=== PATIENT | male | born 2000 | race Caucasian/White ===

== ENCOUNTER 2021-08-25 18:55 | Inpatient (IN) ==
[2021-08-25 20:15] LABS: Basophils # (auto) 0.03 K/uL (0-0.2); Basophils % (auto) 0.3 %; Eosinophils # (auto) 0.02 K/uL (0-0.5); Eosinophils % (auto) 0.2 %; Hematocrit (blood only) 40.6 % (42-52); Hemoglobin 14.2 g/dL (14.0-18.0); Immature Granulocytes # (auto) 0.02 K/uL (0.00-0.02); Immature Granulocytes % (auto) 0.2 %; Lymphocytes # (auto) 1.87 K/uL (1.2-3.4); Mean Corpuscular Hemoglobin 30.5 pg (25-34); Mean Corpuscular Volume 87.3 fL (80-100); Mean Platelet Volume 10.7 fL (7.4-10.4); Monocytes # (auto) 1.29 K/uL (0.11-0.59); Monocytes % (auto) 11.7 %; Neutrophils # (auto) 7.79 K/uL (1.4-6.5); Neutrophils % (auto) 70.6 %; Platelet Count 232 K/uL (130-400); RDW Coefficient of Variation 12.8 % (11.5-14.5); RDW Standard Deviation 41.1 fL (36.4-46.3); Red Blood Count 4.65 M/uL (4.7-6.1); White Blood Count 11.02 K/uL (4.8-10.8)
[2021-08-25 20:31] LABS: Albumin Globulin Ratio 1.4 (0.9-2); Albumin Level 4.6 gm/dl (3.4-5.0); BUN Creatinine Ratio 13.6 (10-20); Bilirubin,Total 1.4 mg/dl (0.2-1.0); Calcium 9.8 mg/dl (8.5-10.1); Creatinine Clr Calc Pharmacy 145.1 ml/min; Est GFR (African American) 120.6 ml/min; Est GFR (Non-African American) 104.1 ml/min; Globulin 3.4 gm/dl (2.5-4.0); Potassium 3.5 mmol/L (3.5-5.1)
--- NOTE | 2021-08-25 21:14 | Emergency Department Note ---
Impression & Plan Peritonsillar abscess, Acute sore throat ED Provider Note NAME: KOURTNEY LOGAN AGE: 21 SEX: M : 2000 ARRIVES VIA: Walk-In INFORMANT: Patient, ED PROVIDER(S): Abram Jimenez MD Chief Complaint: Sore throat HPI: Patient presents due to concern for left-sided neck discomfort and concern for repeat peritonsillar abscess. The patient states that he had approximate 3 weeks of symptoms with some left-sided discomfort. The patient states he was seen at [facility] 2 separate times over the last 3 weeks and was prescribed 2 courses of penicillins. The patient had a recurrence yet again and presented h ere to the emergency department where he was seen by Dr. aCmacho started on amoxicillin and did have his peritonsillar abscess drained. Patient states that since then he has had a recurrence of count of this neck discomfort. Patient does complain of pain with swallowing. The patient has been continue to take the amoxicillin along with rflv-[id number] medications but without significant improvement in symptoms. Patient denies any chest pains or shortness of breath. Patient denies any nausea vomiting or diarrhea. Patient also does have left- sided ear pain. ROS: See HPI for pertinent positives and negatives. A total of 10 systems were reviewed and otherwise negative. Past medical history: See below Surgical history: See below Social history: See below Physical Exam: GENERAL: NAD, wearing glasses, wearing a mask, non-toxic. EYE EXAM: Normal conjunctiva. PERRL, no anisocoria and EOM's grossly intact w/o pain. Ears: Left TM clear with no erythema or effusion. OROPHARYNX: Moist mucus membranes. Grossly normal dentition. Posterior pharynx with left-sided asymmetry and pharyngeal erythema. NECK: Supple, no nuchal rigidity, no adenopathy, non-tender. No signs of meningismus. Not stridulous. LUNGS: Clear to auscultation. Normal chest wall mechanics. HEART: NSR, no MRG. ABDOMEN: Abdomen soft, non-tender, normo-active bowel sounds, no masses, no rebound or guarding. BACK: No CVA TTP. SKIN: No rashes and no bruising. UPPER EXTREMITIES: Upper extremities are grossly normal. LOWER EXTREMITIES: Grossly normal, no edema. NEURO EXAM: A&O x3, cranial nerves II-XII grossly intact, normal speech, moves all 4 extremities on command w/o issue. Differential diagnoses: Viral syndrome, tonsillitis, streptococcal pharyngitis, mononucleosis, peritonsillar abscess, retropharyngeal abscess, otitis, pneumonia, influenza, as well as other pathologies. Course: Patient was seen and evaluated the bedside. Full history physical exam was performed. Imaging Studies: CT soft tissue neck per stat read left peritonsillar abscess with airway narrowing and slight displacement to the right Cardiac monitoring: An order was placed for continuous cardiac monitoring. The monitor shows a rate of 95 with sinus rhythm. MDM: Patient seen due to concern for sore throat. Patient's exam is consistent with a peritonsillar abscess. Blood work was obtained and the patient was treated with IV fluids, IV Toradol dexamethasone and Unasyn. I did speak with on-call ENT physician Dr. Camacho. He will evaluate the patient in the morning for likely drainage. Patient family were at bedside or in agreement with admission at this time. Patient has had recurrent symptoms over 3 weeks with recent recurrence of peritonsillar abscess in the setting of drainage only as recently as Monday. Patient was admitted to medicine service by Dr. Morley. Patient does have associated left peritonsillar abscess. Patient's CT soft tissue neck states that there is some airway narrowing but the patient states handling secretions in the patient is not exhibiting any stridor at this time. Past Med/Surg History Medical History No pertinent past medical history Surgical History No pertinent past surgical history Family History Grandfather (Maternal) Hypertension Other No family history of adverse response to anesthesia No family history of bleeding disorder Social History Smoking Status: Never smoker Hx Alcohol Use: No Hx Substance Use: No Preferred Language: Yi marital status: Single current occupational status: student Feels Safe at Home: Yes Allergies Allergies Allergy/AdvReac Type Severity Reaction Status Date / Time No Known Allergies Allergy Verified 08/25/21 20:53 Home Meds Home Medications Medication Instructions Recorded Confirmed acetaminophen 500 mg tablet 1,000 mg PO DIRECTED PRN 08/25/21 08/25/21 (Tylenol Extra Strength) Previous Rx's Medication Instructions Recorded amoxicillin 875 mg-potassium 1 tab PO BID #20 tab 08/23/21 clavulanate 125 mg tablet Results & Data (ED) Vital Signs Vital Signs - 24 hr 08/25/21 19:04 08/25/21 22:38 Temperature 36.6 C Temperature Source Temporal Artery Scan Pulse Rate 105 H Pulse Rhythm Regular Pulse Strength Normal Respiratory Rate 20 16 Respiratory Effort / Characteristics Non-Labored Tripoding Non-Labored Respiratory Depth Normal Normal Respiratory Pattern Regular Regular Blood Pressure 135/90 Blood Pressure Mean 105 Blood Pressure Position Sitting Pulse Oximetry 97 98 Oxygen Delivery Method Room Air Room Air Sepsis Recent Fever Within 48 Hours No Sepsis New/Unexplained Change in Mental Status No Sepsis Action Taken by Nursing No Action Required Home Medications Current Medication List: was personally reviewed by me Laboratory Data Attestation: I reviewed the patient's lab results. Result diagrams: 08/25/21 20:01 08/25/21 20:01 Lab Results 08/25/21 08/25/21 08/25/21 Range/Units 10:29 20:01 20:01 WBC 11.02 H (4.8-10.8) K/uL RBC 4.65 L (4.7-6.1) M/uL Hgb 14.2 (14.0-18.0) g/dL Hct 40.6 L (42-52) % MCV 87.3 (80-100) fL MCH 30.5 (25-34) pg MCHC 35.0 (32-36) g/dL RDW Std Deviation 41.1 (36.4-46.3) fL RDW Coeff of Antonieta 12.8 (11.5-14.5) % Plt Count 232 (130-400) K/uL MPV 10.7 H (7.4-10.4) fL Immature Gran % (Auto) 0.2 % Neut % (Auto) 70.6 % Lymph % (Auto) 17.0 % [place] % (Auto) 11.7 % Eos % (Auto) 0.2 % Baso % (Auto) 0.3 % Neut # (Auto) 7.79 H (1.4-6.5) K/uL Lymph # (Auto) 1.87 (1.2-3.4) K/uL [place] # (Auto) 1.29 H (0.11-0.59) K/uL Eos # (Auto) 0.02 (0-0.5) K/uL Baso # (Auto) 0.03 (0-0.2) K/uL Immature Gran # (Auto) 0.02 (0.00-0.02) K/uL Sodium 138 (136-145) mmol/L Potassium 3.5 (3.5-5.1) mmol/L Chloride 103 (98-107) mmol/L Carbon Dioxide 24 (21-32) mmol/L Anion Gap 11 (3-11) BUN 14 (6-23) mg/dl Creatinine 1.03 (0.6-1.4) mg/dl Est Cr Clr Drug Dosing 145.1 ml/min Est GFR ( Amer) 120.6 ml/min Est GFR (Non-Af Amer) 104.1 ml/min BUN/Creatinine Ratio 13.6 (10-20) Glucose 82 (70-99(Fasting)) mg/dl Calcium 9.8 (8.5-10.1) mg/dl Total Bilirubin 1.4 H (0.2-1.0) mg/dl AST 10 L (13-39) U/L ALT 12 (7-52) U/L Alkaline Phosphatase 49 (34-104) U/L Total Protein 8.0 (6.0-8.3) gm/dl Albumin 4.6 (3.4-5.0) gm/dl Globulin 3.4 (2.5-4.0) gm/dl Albumin/Globulin Ratio 1.4 (0.9-2) SARS-CoV-2, RNA, NAAT NEGATIVE (NEGATIVE) Administered Medications Sodium Chloride (Nss 1000ml) 1,000 mls @ 100 mls/hr IV .Q10H DYLAN Stop: 08/26/21 09:14 Last Admin: 08/25/21 23:39 Dose: 100 mls/hr Documented by: [id number] Discontinued Medications Dexamethasone Sodium Phosphate (DexamethasonePf 10 Mg/Ml Vial) 10 mg IV NOW ONE Stop: 08/25/21 21:28 Last Admin: 08/25/21 21:39 Dose: 10 mg Documented by: [id number] Ampicillin Sodium/Sulbactam Sodium 3,000 mg/ Sodium Chloride 108 mls @ 200 mls/hr IV NOW STA; Protocol Stop: 08/25/21 21:59 Last Infusion: 08/25/21 23:13 Dose: 0 mls/hr Documented by: [id number] Admin: 08/25/21 22:30 Dose: 200 mls/hr Documented by: [id number] Sodium Chloride (Nss 1000ml) 1,000 mls @ 999 mls/hr IV .Q1H1M ONE Stop: 08/25/21 22:28 Last Infusion: 08/25/21 23:00 Dose: 0 mls/hr Documented by: [id number] Admin: 08/25/21 21:39 Dose: 999 mls/hr Documented by: [id number] Ioversol (Optiray 320 100ml) 94 ml IV ONCE ONE Stop: 08/25/21 22:16 Last Admin: 08/25/21 22:16 Dose: 94 ml Documented by: [id number] Ketorolac Tromethamine (Ketorolac Tromethamine 15 Mg/Ml Vial) 10 mg IV NOW ONE Stop: 08/25/21 21:28 Last Admin: 08/25/21 21:39 Dose: 10 mg Documented by: [id number] Discharge Plan Visit Data Chief Complaint: Infection, Wound Stated Complaint: INFECTION IN THROAT, HAD ABCESS REMOVED ED Provider: Abram Jimenez Discharge Problem: Peritonsillar abscess, Acute sore throat Patient Disposition: Admitted As Inpatient Discharge Instructions Interventions: ED Discharge Assessment Last Done: 08/25/21 23:31
[2021-08-25] MEDS ORDERED: dexAMETHasone**PF** 10 MG/ML VIAL IV ONE (21:27)
[2021-08-25] MEDS ORDERED: AMPICILLIN/SULBACTAM SOD 3,000 MG in 0.9 % SODIUM CHLORIDE 100 ML IV STA (21:27)
[2021-08-25] MEDS ORDERED: KETOROLAC TROMETHAMINE 15 MG/ML VIAL IV ONE (21:27)
[2021-08-25] MEDS ORDERED: SODIUM CHLORIDE 0.9% 1000ML 1,000 ML IV ONE (21:28)
[2021-08-25] MEDS ORDERED: OPTIRAY 320 100ml IV ONE (22:15)
--- NOTE | 2021-08-25 23:05 | History & Physical Report ---
Date of Service August 25, 2021 Assessment & Plan (1) Peritonsillar abscess: Plan: This is a 21-year-old male with no reported past medical history who presented to [facility] recently s/p I&D of L-sided peritonsillar abscess on 08/24 with redevelopment of his symptoms and findings c/w refractory peritonsillar abscess. Peritonsillar Abscess Status post I&D by ENT on 08/24; symptoms persisted despite this and outpatient Augmentin therapy CT neck, stat rad: "Posterior nasopharyngeal michael hypertrophy. Enlarged tonsillar adenoids. Left peritonsillar irregular abscess measuring 2.6 cm transverse. Localized moderate airway narrowing. Airway slightly displaced to the right. Edema in the uvula. Epiglottis, trachea in the upper lung pablo are clear. No retropharyngeal fluid. Bilateral neck reactive nodes. Mild infiltration of the left parapharyngeal fat. No acute findings in the bones. Impression: Left peritonsillar abscess with airway narrowing and slight displacement to the right." Emergency physician spoke with ENT on-call, Dr. Camacho, to discuss case: Planning for repeat I&D tomorrow Continue Unasyn -- do not believe he had enough time on ABX to consider this a treatment failure --> consider transitioning to clindamycin or adding vanc should clinical status worsen Received 1 dose of dexamethasone in the ED; hold from further antibiotics for now Pain: Scheduled Tylenol IV; morphine 3 mg IV, Dilaudid 0.5 mg IV as needed for breakthrough Strict n.p.o. Maintain mIVF - NSS @ 100cc/hr x 1L (2) Elevated bilirubin: Plan: At time of admission, found to have bilirubin 1.4 (in setting of active infection; other LFTs within normal limits Possibly secondary to Gilbert's. No previous data to compare. Recheck in a.m. with direct bilirubin; Consider right upper quadrant ultrasound if increasing Plan: Code: Full code Diet: Strict NPO Dispo: MS PPX: Low risk. Ad zach. History of Present Illness Primary Care Provider: NO PCP This is a 21-year-old male with no reported past medical history who presented to [facility] for evaluation of progressively sore throat. Patient was recently in the ER on 08/23, where he reported being diagnosed with strep throat "several weeks ago." He was treated with penicillin twice, with some improvement in symptoms but thereafter recurrence of symptoms. ENT on-call, Dr. Camacho, was contacted at that time who did recommend outpatient f/u for I&D; he was also placed on Augmentin. On 08/24, he underwent I&D in the office with Dr. Camacho. Unfortunately, since that time, symptoms had recurred -- despite persistently taking ABX. Patient denies any significant past medical history otherwise. His mother denies any recurrent infections involving the respiratory tract growing up. He denies taking any medications. Denies any allergies. In the ER, patient was found to be hemodynamically stable with normal blood pressure, mild tachycardia to 105, normal oxygen saturations/respiratory rate. Labs demonstrated leukocytosis to 11 with neutrophilic predominance. Chemistries revealing of total bilirubin 1.4. COVID-negative. Cherry negative. Recent throat swab/culture from 08/23 demonstrating few GPC's and many WBCs. CT soft tissues of the neck, stat rad: "Posterior nasopharyngeal michael hypertrophy. Enlarged tonsillar adenoids. Left peritonsillar irregular abscess measuring 2.6 cm transverse. Localized moderate airway narrowing. Airway slightly displaced to the right. Edema in the uvula. Epiglottis, trachea in the upper lung pablo are clear. No retropharyngeal fluid. Bilateral neck reactive nodes. Mild infiltration of the left parapharyngeal fat. No acute findings in the bones. Impression: Left peritonsillar abscess with airway narrowing and slight displacement to the right". In the ER, he was given Toradol, dexamethasone 10, and started on Unasyn. ENT on-call, Dr. Camacho, was contacted who is planning for repeat I&D tomorrow. Allergies Allergy/AdvReac Type Severity Reaction Status Date / Time No Known Allergies Allergy Verified 08/25/21 20:53 Home Medications Medication Instructions Recorded Confirmed Type amoxicillin 875 mg-potassium 1 tab PO BID #20 tab 08/23/21 08/25/21 Rx clavulanate 125 mg tablet acetaminophen 500 mg tablet 1,000 mg PO DIRECTED PRN 08/25/21 08/25/21 History (Tylenol Extra Strength) Past Med/Surg History Medical History No pertinent past medical history Surgical History No pertinent past surgical history Family History Grandfather (Maternal) Hypertension Other No family history of adverse response to anesthesia No family history of bleeding disorder Social History Smoking Status: Never smoker Hx Alcohol Use: No Hx Substance Use: No Preferred Language: Afghan marital status: Single current occupational status: student Feels Safe at Home: Yes Review of Systems Review of Systems: as per HPI Physical Exam Physical Exam: General: 21-year old male who is alert, oriented, and appears in no acute distress. HEENT: NCAT. - Eyes - Sclera are white, anicteric, and without injection. - Mouth - Largely normal phonation. MMM, +mild trismus, +significant left-sided tonsillar enlargement with evidence of exposed area of pus, non-draining. Posterior oropharynx clear visible and is non-swollen. - Neck - supple, no appreciable or masses or submandibular prominence. Cardiac: Normal rate and regular rhythm; S1 and S2 present with no murmurs, rubs, or gallops. Pulmonary: Good respiratory effort with symmetric expansion of the chest. No use of accessory muscles. Lungs were clear to auscultation bilaterally with no crackles or wheezes. Abdominal: Normoactive bowel sounds. Abdomen was soft, nondistended, and non- tender to palpation. Extremities: Upper and lower extremities are warm and well perfused. [] peripheral edema in the lower extremities bilaterally Results & Data Results & Data ([facility]) Vital Signs (Past 12 Hours) Vital Signs Temp Pulse Resp BP Pulse Ox 08/25/21 22:38 16 98 08/25/21 19:04 36.6 C 105 H 20 135/90 97 Laboratory Results Laboratory Results WBC 11.02 K/uL (4.8-10.8) H 08/25/21 20:01 RBC 4.65 M/uL (4.7-6.1) L 08/25/21 20:01 Hgb 14.2 g/dL (14.0-18.0) 08/25/21 20:01 Hct 40.6 % (42-52) L 08/25/21 20:01 MCV 87.3 fL (80-100) 08/25/21 20: MCH 30.5 pg (25-34) 08/25/21 20: MCHC 35.0 g/dL (32-36) 08/25/21 20: RDW Std Deviation 41.1 fL (36.4-46.3) 08/25/21 20: RDW Coeff of Antonieta 12.8 % (11.5-14.5) 08/25/21 20: Plt Count 232 K/uL (130-400) 08/25/21 20: MPV 10.7 fL (7.4-10.4) H 08/25/21 20: Immature Gran % (Auto) 0.2 % 08/25/21 20: Neut % (Auto) 70.6 % 08/25/21 20: Lymph % (Auto) 17.0 % 08/25/21 20: Cherry % (Auto) 11.7 % 08/25/21 20: Eos % (Auto) 0.2 % 08/25/21 20: Baso % (Auto) 0.3 % 08/25/21 20: Neut # (Auto) 7.79 K/uL (1.4-6.5) H 08/25/21 20: Lymph # (Auto) 1.87 K/uL (1.2-3.4) 08/25/21 20: Cherry # (Auto) 1.29 K/uL (0.11-0.59) H 08/25/21 20: Eos # (Auto) 0.02 K/uL (0-0.5) 08/25/21 20: Baso # (Auto) 0.03 K/uL (0-0.2) 08/25/21 20: Immature Gran # (Auto) 0.02 K/uL (0.00-0.02) 08/25/21 20: Sodium 138 mmol/L (136-145) 08/25/21 20: Potassium 3.5 mmol/L (3.5-5.1) 08/25/21 20: Chloride 103 mmol/L (98-107) 08/25/21 20: Carbon Dioxide 24 mmol/L (21-32) 08/25/21 20:01 Anion Gap 11 (3-11) 08/25/21 20:01 BUN 14 mg/dl (6-23) 08/25/21 20:01 Creatinine 1.03 mg/dl (0.6-1.4) 08/25/21 20:01 Est Cr Clr Drug Dosing 145.1 ml/min 08/25/21 20:01 Est GFR ( Amer) 120.6 ml/min 08/25/21 20:01 Est GFR (Non-Af Amer) 104.1 ml/min 08/25/21 20:01 BUN/Creatinine Ratio 13.6 (10-20) 08/25/21 20:01 Glucose 82 mg/dl (70-99(Fasting)) 08/25/21 20:01 Calcium 9.8 mg/dl (8.5-10.1) 08/25/21 20:01 Total Bilirubin 1.4 mg/dl (0.2-1.0) H 08/25/21 20:01 AST 10 U/L (13-39) L 08/25/21 20:01 ALT 12 U/L (7-52) 08/25/21 20:01 Alkaline Phosphatase 49 U/L (34-104) 08/25/21 20:01 Total Protein 8.0 gm/dl (6.0-8.3) 08/25/21 20:01 Albumin 4.6 gm/dl (3.4-5.0) 08/25/21 20:01 Globulin 3.4 gm/dl (2.5-4.0) 08/25/21 20:01 Albumin/Globulin Ratio 1.4 (0.9-2) 08/25/21 20:01 SARS-CoV-2, RNA, NAAT NEGATIVE (NEGATIVE) 08/25/21 10:29 Supervising Physician Co-Signing Physician Notes Patient seen and examined, chart reviewed, case discussed with Dr. Higinio west assessment and plan as documented above. In brief, patient is a 21-year-old male presenting with peritonsillar abscess. Patient was diagnosed with strep throat several weeks ago and has completed 2 courses of penicillin antibiotic. He was seen in the ER on 08/24 and found to have peritonsillar abscess which was drained by ENT. He was discharged home on Augmentin. He returns today with persistent symptoms. On exam patient is afebrile, tachycardic at 105 otherwise hemodynamically stable, no acute distress Speech is somewhat muffled Airway patent, left-sided tonsillar swelling with exudate present + S1/S2, regular, no murmur/rub/gallops Lungs clear to auscultation, no stridor, rhonchi, wheezes Abdomen soft, nontender, nondistended Labs and images reviewed CT comments on airway narrowing Assessment/plan: 21-year-old male with persistent peritonsillar abscess. Airway narrowing noted on imaging. Patient presently without stridor, shortness of breath. Was given dexamethasone 10 mg Continue Unasyn ENT consultation appreciated. We will plan for OR drainage in the morning Remainder of plan as above Resident Activity Tracking Resident Involvement: Resident Care Provided Care Provided: Adult [facility] Medicine
[2021-08-25] MEDS ORDERED: SODIUM CHLORIDE 0.9% 1000ML 1,000 ML IV SCH (23:15)
[2021-08-26] MEDS ORDERED: ACETAMINOPHEN 1000 MG/100 ML IV IV SCH (00:07)
[2021-08-26] MEDS ORDERED: MoRPHine SULFATE 4 MG/ML 1 ML CARP\\VIAL IV PRN (00:07)
[2021-08-26] MEDS ORDERED: HYDROmorphone INJ 0.5 MG/0.5 ML SYR IV PRN (00:07)
[2021-08-26] MEDS: ACETAMINOPHEN 1,000 MG/100 ML VIAL IV SCH ×4 (00:33→21:48)
--- NOTE | 2021-08-26 02:45 | Billing Data ---
Date of Service August 25, 2021 Coding Level of Care Code 05775 Initial Inpt Care Lvl 2
[2021-08-26] MEDS: AMPICILLIN/SULBACTAM SOD 3,000 MG in 0.9 % SODIUM CHLORIDE 100 ML IV SCH ×4 (05:59→23:44)
--- NOTE | 2021-08-26 06:51 | Hospitalist Progress Note ---
Date of Service August 26, 2021 Assessment & Plan (1) Peritonsillar abscess: Plan: This is a 21-year-old male with no reported past medical history who presented to [facility] recently s/p I&D of L-sided peritonsillar abscess on 08/24 with redevelopment of his symptoms and findings c/w refractory peritonsillar abscess. Peritonsillar Abscess Status post I&D by ENT on 08/24; symptoms persisted despite this and outpatient Augmentin therapy CT neck, stat rad: "Posterior nasopharyngeal michael hypertrophy. Enlarged tonsillar adenoids. Left peritonsillar irregular abscess measuring 2.6 cm transverse. Localized moderate airway narrowing. Airway slightly displaced to the right. Edema in the uvula. Epiglottis, trachea in the upper lung pablo are clear. No retropharyngeal fluid. Bilateral neck reactive nodes. Mild infiltration of the left parapharyngeal fat. No acute findings in the bones. Impression: Left peritonsillar abscess with airway narrowing and slight displacement to the right." Emergency physician spoke with ENT on-call, Dr. Camacho, to discuss case: Planning for repeat I&D tomorrow Continue Unasyn -- do not believe he had enough time on ABX to consider this a treatment failure --> consider transitioning to clindamycin or adding vanc should clinical status worsen Received 1 dose of dexamethasone in the ED; hold from further antibiotics for now Pain: Scheduled Tylenol IV; morphine 3 mg IV, Dilaudid 0.5 mg IV as needed for breakthrough Strict n.p.o. Maintain mIVF - NSS @ 100cc/hr x 1L (2) Elevated bilirubin: Plan: At time of admission, found to have bilirubin 1.4 (in setting of active infection; other LFTs within normal limits Possibly secondary to Gilbert's. No previous data to compare. Recheck in a.m. with direct bilirubin; Consider right upper quadrant ultrasound if increasing Plan: Code: Full code Diet: Strict NPO Dispo: PPX: Low risk. Ad zach. Admission and Anticipated Discharge Date Admission Date: August 25, 2021 Review of Systems Review of Systems: All systems reviewed & are unremarkable except as noted in HPI & below Physical Exam Physical Exam: General: Grossly A&O. NAD. Cooperative. HEENT: Atraumatic, normocephalic. EOMI Pulm: CTAB. -wheezes, -rales, -rhonchi. No respiratory distress. Cardiac: RRR, -mrg. Radial pulses intact and symmetrical. Abdominal: Nontender, nondistended, soft. Results & Data Results & Data ([facility]) Vital Signs (Past 12 Hours) Vital Signs Temp Pulse Pulse Resp BP BP Pulse Ox 08/25/21 23:50 36.8 C 79 16 147/84 H 96 08/25/21 22:38 16 98 08/25/21 19:04 36.6 C 105 H 20 135/90 97 Resident Activity Tracking Resident Involvement: Resident Care Provided Care Provided: Adult Hospital Medicine
[2021-08-26 07:10] LABS: Albumin Globulin Ratio 1.2 (0.9-2); BUN Creatinine Ratio 16.5 (10-20); Bilirubin,Total 0.9 mg/dl (0.2-1.0); Calcium 9.4 mg/dl (8.5-10.1); Creatinine Clr Calc Pharmacy 189.2 ml/min; Est GFR (African American) 149.8 ml/min; Est GFR (Non-African American) 129.3 ml/min; Globulin 3.3 gm/dl (2.5-4.0); Potassium 4.3 mmol/L (3.5-5.1); Total Protein 7.3 gm/dl (6.0-8.3)
--- NOTE | 2021-08-26 07:19 | CT Scan Report ---
CT soft tissue neck w con HISTORY: Left-sided throat swelling and pain. TECHNIQUE: Multiaxial CT images of the neck were performed following the intravenous administration o f contrast and reformatted in the sagittal and coronal planes. COMPARISON STUDY: None. FINDINGS: Best seen on image 31 of 96 there is a 2.9 x 1.4 cm left peritonsillar abscess. There is ma rked edema and swelling within the left tonsillar pillar with effacement of the airway of this level approximately 40%. Mild hypertrophy of the adenoid tonsils, left greater than right. Prevertebral sof t tissues are within normal limits. The epiglottis is normal in thickness. The thyroid gland enhances normally. The lung apices are clear. No fractures within the visualized osseous structures. A 1.4 cm retention cyst within the right maxillary sinus. The visualized brain parenchyma and orbits are unre markable. The major cervical vessels enhance normally. Left greater than right cervical lymphadenopat hy. This is likely reactive. The parotid and submandibular glands are symmetric. The uvula is slightl y thickened and edematous. IMPRESSION: 1. A 2.9 x 1.4 similar left peritonsillar abscess. 2. Edema and enlargement of the left tonsillar pillar with approximately 40% effacement of the airway . 3. Bilateral cervical lymphadenopathy. This is likely reactive. ACT 112: Negative or not required by law. Electronically signed by: Shawn Fischer M.D. 08/26/2021 7:18 AM
--- NOTE | 2021-08-26 09:13 | Medical Student Progress Note ---
Date of Service August 26, 2021 Assessment & Plan (1) Peritonsillar abscess: Plan: Collin is a 21-year-old male who presented to the ED s/p I&D of L-sided peritonsillar abscess on 08/24 with no improvement on outpatient Augmentin received IV Dexamethasone 10 mg in ED -CT neck on 08/26 showed left peritonsillar abscess with airway narrowing currently awaiting repeat I&D -keep NPO Continue IV Amp/Sulbactam 3000 mg Q6H Pain: Scheduled Tylenol IV; morphine 3 mg IV, Dilaudid 0.5 mg IV as needed for breakthrough Plan: Diet: NPO Code: Full DVT: SCDs Admission and Anticipated Discharge Date Admission Date: August 25, 2021 Supervising Attestation Medical Student Supervision Note: I was personally present during medical student patient encounter and independently interviewed and examined the patient and verified the yang history and physical, reviewed labs and image studies, discussed the case with Carole Pedersen and agree with the findings and care plan. peritonsillar abscess - drained 08/26/2021. continue IV abx Subjective Collin is currently awaiting repeat I&D. He feels better. Still NPO. Denies fevers chills nausea vomiting Review of Systems Constitutional: no fever, no chills and no sweats Ear, Nose, Mouth, Throat: as per Subjective / HPI Respiratory: no cough, no chest congestion and no dyspnea Cardiovascular: no chest pain and no dyspnea Physical Exam Constitutional: WD/WN, vitals as above ENMT: Throat: + posterior oropharynx abnormality (erythema ) and + tonsil abnormality (left sided swelling, erythma) Respiratory: normal respiratory effort, lungs clear to auscultation Cardiovascular: RRR, no murmur, no edema Gastrointestinal (Abdomen): normal bowel sounds, soft, nontender, no hepatosplenomegaly Lymphatic: + lymphadenopathy (submandibular. left ) Results & Data ([facility]) Vital Signs (Past 12 Hours) Vital Signs Temp Pulse Resp BP BP Pulse Ox 08/26/21 07:09 36.5 C 70 18 124/74 98 08/25/21 23:50 36.8 C 79 16 147/84 H 96 08/25/21 22:38 16 98 Laboratory Results Laboratory Results WBC 11.02 K/uL (4.8-10.8) H 08/25/21 20:01 RBC 4.65 M/uL (4.7-6.1) L 08/25/21 20: Hgb 14.2 g/dL (14.0-18.0) 08/25/21 20: Hct 40.6 % (42-52) L 08/25/21 20: MCV 87.3 fL (80-100) 08/25/21 20: MCH 30.5 pg (25-34) 08/25/21 20: MCHC 35.0 g/dL (32-36) 08/25/21 20: RDW Std Deviation 41.1 fL (36.4-46.3) 08/25/21: RDW Coeff of Antonieta 12.8 % (11.5-14.5) 08/25/21 20: Plt Count 232 K/uL (130-400) 08/25/21 20: MPV 10.7 fL (7.4-10.4) H 08/25/21 20: Immature Gran % (Auto) 0.2 % 08/25/21 20: Neut % (Auto) 70.6 % 08/25/21 20: Lymph % (Auto) 17.0 % 08/25/21 20: Mineral % (Auto) 11.7 % 08/25/21 20: Eos % (Auto) 0.2 % 08/25/21 20: Baso % (Auto) 0.3 % 08/25/21 20: Neut # (Auto) 7.79 K/uL (1.4-6.5) H 08/25/21 20: Lymph # (Auto) 1.87 K/uL (1.2-3.4) 08/25/21 20: Mineral # (Auto) 1.29 K/uL (0.11-0.59) H 08/25/21 20: Eos # (Auto) 0.02 K/uL (0-0.5) 08/25/21 20: Baso # (Auto) 0.03 K/uL (0-0.2) 08/25/21 20: Immature Gran # (Auto) 0.02 K/uL (0.00-0.02) 08/25/21 20:01 Sodium 138 mmol/L (136-145) 08/26/21 06:04 Potassium 4.3 mmol/L (3.5-5.1) D 08/26/21 06:04 Chloride 106 mmol/L (98-107) 08/26/21 06:04 Carbon Dioxide 26 mmol/L (21-32) 08/26/21 06:04 Anion Gap 6 (3-11) 08/26/21 06:04 BUN 13 mg/dl (6-23) 08/26/21 06:04 Creatinine 0.79 mg/dl (0.6-1.4) 08/26/21 06:04 Est Cr Clr Drug Dosing 189.2 ml/min 08/26/21 06:04 Est GFR ( Amer) 149.8 ml/min 08/26/21 06:04 Est GFR (Non-Af Amer) 129.3 ml/min 08/26/21 06:04 BUN/Creatinine Ratio 16.5 (10-20) 08/26/21 06:04 Glucose 120 mg/dl (70-99(Fasting)) H 08/26/21 06:04 Calcium 9.4 mg/dl (8.5-10.1) 08/26/21 06:04 Total Bilirubin 0.9 mg/dl (0.2-1.0) D 08/26/21 06:04 AST 9 U/L (13-39) L 08/26/21 06:04 ALT 10 U/L (7-52) 08/26/21 06:04 Alkaline Phosphatase 47 U/L (34-104) 08/26/21 06:04 Total Protein 7.3 gm/dl (6.0-8.3) 08/26/21 06:04 Albumin 4.0 gm/dl (3.4-5.0) 08/26/21 06:04 Globulin 3.3 gm/dl (2.5-4.0) 08/26/21 06:04 Albumin/Globulin Ratio 1.2 (0.9-2) 08/26/21 06:04 SARS-CoV-2, RNA, NAAT NEGATIVE (NEGATIVE) 08/25/21 10:29 Impressions Soft Tissue Neck CT 08/25/21 21:51 CT soft tissue neck w con HISTORY: Left-sided throat swelling and pain. TECHNIQUE: Multiaxial CT images of the neck were performed following the intravenous administration of contrast and reformatted in the sagittal and coronal planes. COMPARISON STUDY: None. FINDINGS: Best seen on image 31 of 96 there is a 2.9 x 1.4 cm left peritonsillar abscess. There is marked edema and swelling within the left tonsillar pillar with effacement of the airway of this level approximately 40%. Mild hypertrophy of the adenoid tonsils, left greater than right. Prevertebral soft tissues are within normal limits. The epiglottis is normal in thickness. The thyroid gland enhances normally. The lung apices are clear. No fractures within the visualized osseous structures. A 1.4 cm retention cyst within the right maxillary sinus. The visualized brain parenchyma and orbits are unremarkable. The major cervical vessels enhance normally. Left greater than right cervical lymphadenopathy. This is likely reactive. The parotid and submandibular glands are symmetric. The uvula is slightly thickened and edematous. IMPRESSION: 1. A 2.9 x 1.4 similar left peritonsillar abscess. 2. Edema and enlargement of the left tonsillar pillar with approximately 40% effacement of the airway. 3. Bilateral cervical lymphadenopathy. This is likely reactive. ACT 112: Negative or not required by law. Electronically signed by: Shawn Fischer M.D. 08/26/2021 7:18 AM Medications Administered Current Medications Hydromorphone HCl (Hydromorphone Inj 0.5 Mg/0.5 Ml Syr) 0.5 mg IV Q2H PRN PRN Reason: Breakthrough Pain Stop: 09/09/21 00:06 Ampicillin Sodium/Sulbactam Sodium 3,000 mg/ Sodium Chloride 108 mls @ 200 mls/hr IV Q6H DYLAN; Protocol Stop: 09/02/21 05:59 Last Infusion: 08/26/21 06:41 Dose: Infused Documented by: Acetaminophen (Ofirmev) 1,000 mg in 100 mls @ 400 mls/hr IV Q8 DYLAN Stop: 08/29/21 00:14 Last Infusion: 08/26/21 06:15 Dose: Infused Documented by: Morphine Sulfate (Morphine Sulfate 4 Mg/Ml 1 Ml Carp\Vial) 3 mg IV Q4H PRN PRN Reason: Pain Stop: 09/09/21 00:06
--- NOTE | 2021-08-26 09:33 | ENT Consultation ---
Date of Consultation August 26, 2021 Assessment & Plan (1) Peritonsillar abscess: For incision and drainage later today. He has recurrence of left peritonsillar abscess. Please keep him n.p.o. I will drain the abscess this afternoon. History of Present Illness Reason for Consultation: Left peritonsillar abscess Attending Physician: Judy Schumacher MD History of Present Illness This 21-year-old student had sore throat x1 week, developed left peritonsillar abscess, had incision and drainage in my office on Monday approximately 2 cc of pus. Improved greatly and was rechecked yesterday a.m. Was doing well until yesterday p.m. when he again has sore throat and trismus. Evidence of left peritonsillar abscess. Allergies Allergy/AdvReac Type Severity Reaction Status Date / Time No Known Allergies Allergy Verified 08/25/21 20:53 Home Medications Medication Instructions Recorded Confirmed Type amoxicillin 875 mg-potassium 1 tab PO BID #20 tab 08/23/21 08/25/21 Rx clavulanate 125 mg tablet acetaminophen 500 mg tablet 1,000 mg PO DIRECTED PRN 08/25/21 08/25/21 History (Tylenol Extra Strength) Patient History Medical History No pertinent past medical history Surgical History No pertinent past surgical history Family History Grandfather (Maternal) Hypertension Other No family history of adverse response to anesthesia No family history of bleeding disorder Social History Smoking Status: Never smoker Second Hand Exposure: No; Do You Dip or Chew Tobacco: No; Tobacco Cessation Education Requested by Patient: No Hx Alcohol Use: No Hx Substance Use: No Preferred Language: Comoran Communication Ability: Effective Section Gang Required: No Beliefs That Will Affect Care: None marital status: Single Current Living Situation: Other Current Living Situation Comment: Friends (Student at [employer]). current occupational status: student Other Information That Helps Us Care for You: No Feels Safe at Home: Yes Safety Concerns: Feels Safe At This Time Assistive Devices: Glasses Physical Exam Constitutional: WD/WN, vitals as above Eyes: PERRL, conjunctivae normal, anicteric sclerae ENMT: external ear and nose normal, oropharynx normal Mouth: + oropharynx abnormality (Left soft palate bulging and uvular shift) and + trismus Neck: trachea midline, no thyromegaly Results & Data ([facility]) Vital Signs (Past 12 Hours) Vital Signs Temp Pulse Resp BP BP Pulse Ox 08/26/21 07:09 36.5 C 70 18 124/74 98 08/25/21 23:50 36.8 C 79 16 147/84 H 96 08/25/21 22:38 16 98
[2021-08-26] MEDS ORDERED: BUPIVACAINE/EPINEPHRINE 0.25% 1:200,000 30 ML VIAL ONE (15:18)
[2021-08-26] MEDS ORDERED: EPINEPHrine INJ 1 MG/ML AMP ONE (15:19)
[2021-08-26] MEDS ORDERED: BUPIVACAINE 0.5 % 5 MG/1 ML MPF 30ML VIAL ONE (15:20)
[2021-08-26] MEDS ORDERED: ATROPINE SULFATE 0.1 MG/ML 10ML SYR IV PRN (15:22)
[2021-08-26] MEDS ORDERED: HYDROmorphone INJ 1 MG/ML SYRINGE IV PRN (15:22)
[2021-08-26] MEDS ORDERED: ONDANSETRON INJ 2 MG/ML 2 ML VIAL IV PRN (15:22)
[2021-08-26] MEDS ORDERED: fentaNYL citrate 100 MCG/2 ML VIAL IV PRN (15:22)
[2021-08-26] MEDS ORDERED: ePHEDrine sulfate 50 MG/ML AMP IV PRN (15:22)
--- NOTE | 2021-08-26 15:26 | Anesthesiology Consultation ---
Date of Service August 26, 2021 Assessment & Plan (1) Encounter for pre-operative examination: Chart Review Chart Review: Acceptable Risk for Surgery and Patient NOT seen in Pre Admission Testing Consults Requested none History Surgery Operation Date: 08/26/21 12:40 Proposed Procedures p Incision and Drainage Left Peritonsillar Abscess - Aliyah Camacho MD Height/Weight Height: 6 ft 6 in Weight: 89.7 kg Allergies Allergy/AdvReac Type Severity Reaction Status Date / Time No Known Allergies Allergy Verified 08/25/21 20:53 Medications Home Medications Medication Instructions Recorded Confirmed Last Taken amoxicillin 875 mg-potassium 1 tab PO BID #20 tab 08/23/21 08/25/21 08/25/21 clavulanate 125 mg tablet acetaminophen 500 mg tablet 1,000 mg PO DIRECTED PRN 08/25/21 08/25/21 08/25/21 10:00 (Tylenol Extra Strength) Active Medications Generic Name Dose Route Start Last Admin Trade Name Freq PRN Reason Stop Dose Admin Ampicillin Sodium/Sulbactam 108 mls @ 200 mls/hr 08/26/21 06:00 08/26/21 13:50 Sodium 3,000 mg/ Sodium IV 09/02/21 05:59 Infused Chloride Q6H DYLAN Infusion Protocol Acetaminophen 1,000 mg in 100 mls @ 400 mls/hr 08/26/21 00:15 08/26/21 14:51 Ofirmev IV 08/29/21 00:14 Infused Q8 DYLAN Infusion NPO Date Last Intake of Fluids: 08/25/21 Time Last Intake of Fluids: 23:59 Date Last Intake of Solids: 08/25/21 Time Last Intake of Solids: 23:59 Past Medical History Medical History No pertinent past medical history Exercise / Class Metabolic Activity II 4-5 Yardwork/Stairs/Walk up hill Past Family History Family History Grandfather (Maternal) Hypertension Other No family history of adverse response to anesthesia No family history of bleeding disorder Past Surgical History Surgical History No pertinent past surgical history Past Anesthesia History No Hx of Anesthesia Complications and No Family Hx of Anesthesia Complications History of PONV No Hx of PONV and No Hx of Motion Sickness Social History Smoking Status: Never smoker Do You Dip or Chew Tobacco: No Hx Alcohol Use: No Hx Substance Use: No Physical Exam Vital Signs Last Vital Signs Temp 36.9 C 08/26/21 15:38 Pulse 80 08/26/21 15:38 Resp 18 08/26/21 15:38 BP 147/80 H 08/26/21 15:38 Pulse Ox 97 08/26/21 15:38 Testing Laboratory Results 08/25/21 20:01 08/26/21 06:[address] soft tissue neck w con HISTORY: Left-sided throat swelling and pain. TECHNIQUE: Multiaxial CT images of the neck were performed following the intravenous administration of contrast and reformatted in the sagittal and coronal planes. COMPARISON STUDY: None. FINDINGS: Best seen on image 31 of 96 there is a 2.9 x 1.4 cm left peritonsillar abscess. There is marked edema and swelling within the left tonsillar pillar with effacement of the airway of this level approximately 40%. Mild hypertrophy of the adenoid tonsils, left greater than right. Prevertebral soft tissues are within normal limits. The epiglottis is normal in thickness. The thyroid gland enhances normally. The lung apices are clear. No fractures within the visualized osseous structures. A 1.4 cm retention cyst within the right maxillary sinus. The visualized brain parenchyma and orbits are unremarkable. The major cervical vessels enhance normally. Left greater than right cervical lymphadenopathy. This is likely reactive. The parotid and submandibular glands are symmetric. The uvula is slightly thickened and edematous. IMPRESSION: 1. A 2.9 x 1.4 similar left peritonsillar abscess. 2. Edema and enlargement of the left tonsillar pillar with approximately 40% effacement of the airway. 3. Bilateral cervical lymphadenopathy. This is likely reactive.
[2021-08-26] MEDS ORDERED: PROPOFOL IV EMULSION 10 MG/ML 20 ML VIAL IV ONE (15:32)
[2021-08-26] MEDS ORDERED: LIDOCAINE 2% 2 ML VIAL/AMP(20MG/ML) INFIL ONE (15:33)
[2021-08-26] MEDS ORDERED: fentaNYL citrate 100 MCG/2 ML VIAL ONE (15:34)
[2021-08-26] MEDS ORDERED: MIDAZOLAM HCL 1 MG/ML 2ML VIAL ONE (15:34)
[2021-08-26] MEDS ORDERED: SUCCINYLCHOLINE 100MG/5ML SYR IV ONE (16:26)
--- NOTE | 2021-08-26 16:27 | Anesthesiology Progress Note ---
Date of Service August 26, 2021 Anesthesia Post Procedure Vital Signs Vital Signs: Temp Pulse Pulse Pulse Resp BP BP 08/26/21 15:38 36.9 C 80 18 08/26/21 15:31 37.3 C 114 H 18 08/26/21 07:09 36.5 C 70 18 08/25/21 23:50 36.8 C 79 16 147/84 H 08/25/21 22:38 16 08/25/21 19:04 36.6 C 105 H 20 135/90 BP Pulse Ox 08/26/21 15:38 147/80 H 97 08/26/21 15:31 160/93 H 100 08/26/21 07:09 124/74 98 08/25/21 23:50 96 08/25/21 22:38 98 08/25/21 19:04 97 Pain Intensity Left Throat: Pain Intensity: 0 Transfer of Care Handoff Completed per policy Notes Mental Status: alert / awake / arousable and participated in evaluation Patient Amnestic to Procedure: Yes Nausea / Vomiting: adequately controlled Pain: adequately controlled Airway Patency, RR, SpO2: stable & adequate BP & HR: stable & adequate Hydration State: stable & adequate Anesthetic Complications: no major complications apparent and Pt Satisfied with anesthetic care
--- NOTE | 2021-08-26 16:29 | Operative Report ---
PG Post Operative Report Pre & Post Diagnosis Operation Date: 08/26/21 12:40 Pre-Op Diagnosis: PERITONSILLAR ABSCESS Post-Op Diagnosis: PERITONSILLAR ABSCESS I identified the patient and participated in the time-out.: Yes Procedure Operation Date: 08/26/21 12:40 Actual Procedures p Incision and Drainage Left Peritonsillar Abscess(Left) - Aliyah Camacho MD Surgeon Aliyah Camacho MD Bit Shaver None Estimated Blood Loss 5 Findings Consistent with Post-Op Diagnosis Less than 1 cc of pus Specimens None Anesthesia Type General Complications None Description of Procedure He was brought to the operating room, properly identified, prepped and draped in the usual sterile manner after general endotracheal anesthesia. Mouthgag was placed the left peritonsillar area was injected with 2% Xylocaine with 1-100,000 strength epinephrine. The site was aspirated with 18-gauge needle. No pus was obtained. Incision was made using a 12 blade and the abscess cavity was opened using a tonsil hemostat. Less than 1 cc of cloudy fluid obtained. The abscess cavity in the pharynx was irrigated clean and suctioned clean. He tolerated procedure well and was taken to recovery area in satisfactory condition. I attest to the content of the Intraoperative Record and any orders documented therein. Any exceptions are noted below.
--- NOTE | 2021-08-26 16:30 | Ears,Nose,Throat Progress Note ---
Date of Service August 26, 2021 Assessment & Plan (1) Peritonsillar abscess: Plan: Less than 1 cc of cloudy fluid obtained. Abscess cavity opened and irrigated clean. If he is improved he should be okay for discharge tomorrow a.m. Admission and Anticipated Discharge Date Admission Date: August 25, 2021 Subjective Status post I&D left peritonsillar abscess Results & Data ([facility]) Vital Signs (Past 12 Hours) Vital Signs Temp Pulse Pulse Resp BP Pulse Ox 08/26/21 15:38 36.9 C 80 18 147/80 H 97 08/26/21 15:31 37.3 C 114 H 18 160/93 H 100 08/26/21 07:09 36.5 C 70 18 124/74 98
[2021-08-27] MEDS: ACETAMINOPHEN 1,000 MG/100 ML VIAL IV SCH (05:59)
[2021-08-27] MEDS: AMPICILLIN/SULBACTAM SOD 3,000 MG in 0.9 % SODIUM CHLORIDE 100 ML IV SCH (06:20)
[2021-08-27 07:23] LABS: Basophils # (auto) 0.01 K/uL (0-0.2); Basophils % (auto) 0.1 %; Hematocrit (blood only) 37.1 % (42-52); Immature Granulocytes # (auto) 0.03 K/uL (0.00-0.02); Immature Granulocytes % (auto) 0.4 %; Lymphocytes # (auto) 1.63 K/uL (1.2-3.4); Lymphocytes % (auto) 19.8 %; Mean Corpuscular Hemoglobin 29.7 pg (25-34); Mean Corpuscular Volume 84.7 fL (80-100); Mean Platelet Volume 10.5 fL (7.4-10.4); Monocytes # (auto) 0.89 K/uL (0.11-0.59); Monocytes % (auto) 10.8 %; Neutrophils # (auto) 5.68 K/uL (1.4-6.5); Neutrophils % (auto) 68.9 %; Platelet Count 256 K/uL (130-400); RDW Coefficient of Variation 12.5 % (11.5-14.5); RDW Standard Deviation 38.5 fL (36.4-46.3); Red Blood Count 4.38 M/uL (4.7-6.1); White Blood Count 8.24 K/uL (4.8-10.8)
[2021-08-27 08:08] LABS: BUN Creatinine Ratio 17.5 (10-20); Calcium 9.4 mg/dl (8.5-10.1); Creatinine Clr Calc Pharmacy 186.9 ml/min; Est GFR (Non-African American) 128.6 ml/min; Potassium 3.9 mmol/L (3.5-5.1)
--- NOTE | 2021-08-27 12:54 | Med Student Discharge Summary ---
Date of Service August 27, 2021 Admission HPI Per Admitting Provider This is a 21-year-old male with no reported past medical history who presented to [facility] for evaluation of progressively sore throat. Patient was recently in the ER on 08/23, where he reported being diagnosed with strep throat "several weeks ago." He was treated with penicillin twice, with some improvement in symptoms but thereafter recurrence of symptoms. ENT on-call, Dr. Camacho, was contacted at that time who did recommend outpatient f/u for I&D; he was also placed on Augmentin. On 08/24, he underwent I&D in the office with Dr. Camacho. Unfortunately, since that time, symptoms had recurred -- despite persistently taking ABX. Patient denies any significant past medical history otherwise. His mother denies any recurrent infections involving the respiratory tract growing up. He denies taking any medications. Denies any allergies. In the ER, patient was found to be hemodynamically stable with normal blood pressure, mild tachycardia to 105, normal oxygen saturations/respiratory rate. Labs demonstrated leukocytosis to 11 with neutrophilic predominance. Chemistries revealing of total bilirubin 1.4. COVID-negative. Love negative. Recent throat swab/culture from 08/23 demonstrating few GPC's and many WBCs. CT soft tissues of the neck, stat rad: "Posterior nasopharyngeal michael hypertrophy. Enlarged tonsillar adenoids. Left peritonsillar irregular abscess measuring 2.6 cm transverse. Localized moderate airway narrowing. Airway slightly displaced to the right. Edema in the uvula. Epiglottis, trachea in the upper lung pablo are clear. No retropharyngeal fluid. Bilateral neck reactive nodes. Mild infiltration of the left parapharyngeal fat. No acute findings in the bones. Impression: Left peritonsillar abscess with airway narrowing and slight displacement to the right". In the ER, he was given Toradol, dexamethasone 10, and started on Unasyn. ENT on-call, Dr. Camacho, was contacted who is planning for repeat I&D tomorrow. Admission Exam (Per Admitting) Constitutional WD/WN, vitals as above Eyes PERRL, conjunctivae normal, anicteric sclerae ENMT external ear and nose normal, oropharynx normal Mouth: + oropharynx abnormality (Left soft palate erythma, swelling, non obstructive ); no TMJ abnormality Throat: + posterior oropharynx abnormality (erythema ) and + tonsil abnormality (left sided swelling, erythma) Neck trachea midline, no thyromegaly normal visual inspection (no readily apparently swelling ) and trachea midline; no tracheal deviation and thyromental distance not shortened Respiratory normal respiratory effort, lungs clear to auscultation Cardiovascular RRR, no murmur, no edema Rate/Rhythm: regular rate and regular rhythm Gastrointestinal (Abdomen) normal bowel sounds, soft, nontender, no hepatosplenomegaly Musculoskeletal Spine: normal cervical ROM and no pain with cervical ROM Neurologic moves all extremities Psychiatric Orientation: alert and oriented x 3 Lymphatic + lymphadenopathy (submandibular. left ) Discharge Exam Constitutional WD/WN, vitals as above Eyes PERRL, conjunctivae normal, anicteric sclerae ENMT external ear and nose normal, oropharynx normal Mouth: + oropharynx abnormality (Left soft palate erythma, swelling, non obstructive ); no TMJ abnormality Throat: + posterior oropharynx abnormality (erythema ) and + tonsil abnormality (left sided swelling, erythma) Neck trachea midline, no thyromegaly normal visual inspection (no readily apparently swelling ) and trachea midline; no tracheal deviation and thyromental distance not shortened Respiratory normal respiratory effort, lungs clear to auscultation Cardiovascular RRR, no murmur, no edema Rate/Rhythm: regular rate and regular rhythm Gastrointestinal (Abdomen) normal bowel sounds, soft, nontender, no hepatosplenomegaly Musculoskeletal Spine: normal cervical ROM and no pain with cervical ROM Neurologic moves all extremities Psychiatric Orientation: alert and oriented x 3 Lymphatic + lymphadenopathy (submandibular. left ) Discharge Data Consultations 08/25/21 22:52 ED Decision to Admit Stat 08/25/21 23:09 Consult Otolaryngology (Head and Neck) Routine Procedures Performed Operation Date: 08/26/21 12:40 Actual Procedures p Incision and Drainage Left Peritonsillar Abscess(Left) - Aliyah Camacho MD Hospital Course (1) Peritonsillar abscess: Collin is a 21-year-old male who presented to the ED s/p I&D on of L- sided peritonsillar abscess on 08/24 with no improvement on outpatient Augmentin -WBC 11.02 on admission. Patient Afebrile. received IV Dexamethasone 10 mg in ED -started on IV Amp/Sulbactam 3000 mg Q6H -CT neck on 08/26 showed left peritonsillar abscess with airway narrowing -Repeat I&D done on 08/26 with ENT given perceived failure on outpatient Augmentin, will start clindamycin 450 mg PO TID for 10 days -Ibuprofen PRN for pain -Tolerating soft diet well Discharge Plan Discharge Items Patient Disposition: Home - Self-Care Reason For Visit: PERITONSILLAR ABSCESS Discharge Diagnosis: peritonsillar abscess Activity: Per Instructions section Non-emergency contact: Primary Care Provider and Surgeon Call non-emergency contact if: you have any medication questions, your symptoms worsen and you have a fever Follow-up/Referrals: [facility] [Primary Care Provider] - Diet: Regular Addtl Attending Provider Instructions: You were seen and admitted for concerns of continued throat pain and swelling in the setting of a peritonsillar abscess. Following surgical opening of the abscess and drainage you had improvement in your symptoms. In order to complete the treatment of this infection, you will be discharged on 10 additional day of antibiotics that you should take three times a day. If you notice that you start to have looser stools while on the medication, you should start taking probiotics. If no improvement in the loose stools, then you should contact your primary care doctor for evaluation. Pending Studies at Discharge: No Stand-Alone Forms: My [facility] [id number], Smoking Cessation Medications and DC Order Prescriptions: New clindamycin HCl 300 mg capsule 450 mg PO Q8H 10 Days Qty: 45 RF: 0 Continued acetaminophen [Tylenol Extra Strength] 500 mg Tablet 1,000 mg PO DIRECTED PRN (Reason: FEVER/PAIN) RF: 0 Discontinued amoxicillin-pot clavulanate 875-125 mg tablet 1 tab PO BID Qty: 20 RF: 0 Discharge Orders: Discharge Order (Routine); Ordered 08/27/21 Ordered By: Chepe Harmon Admission Data Admit Date/Time: 08/25/21 23:05 Attending Provider: Judy Schumacher Admit Provider: Zack Sylvester Primary Care Provider: [facility] Other Providers: Nicole Morley Yi How Other Interventions: Discharge Summary Assessment (RN) Last Done: 08/27/21 11:49 Supervising Attestation Medical Student Supervision Note: I was personally present during medical student patient encounter and independently interviewed and examined the patient and verified the yang history and physical, reviewed labs and image studies, discussed the case with Carole Pedersen and agree with the findings and care plan. doing well post peritonsillar abscess drainage - finish abx course with clindamycin as outpatient Elevated blood pressure during hospital stay- outpatient follow up
[2021-08-27] MEDS ORDERED: ACETAMINOPHEN 500 MG TAB PO PRN (13:36)
[2021-08-27] MEDS ORDERED: CLINDAMYCIN HCL 150 MG CAP PO SCH ×3 (14:00→21:00)
== END 2021-08-27 14:15 | disposition home or self-care (01) | DRG 145 ==
LOC: ED 18:55 → 3N 23:05 → SUATTDRO 23:05 → 3N 23:31